=== PATIENT | female | born 1960 | race Caucasian/White ===

== ENCOUNTER → 2022-08-31 | Outpatient (CLI) | payer OTHER | LOC: ORTHO 08:21 | PROVIDERS: ATTEND Orthopaedic Surgery | DX: M25.561 Pain in right knee (principal) | CPT/HCPCS: 99203 ==

== ENCOUNTER → 2022-11-23 | Outpatient (CLI) | payer OTHER | LOC: ORTHO 15:47 | PROVIDERS: ATTEND Orthopaedic Surgery | DX: M25.561 Pain in right knee (principal) | CPT/HCPCS: 20610 ==